=== PATIENT | male | born 1995 | race Caucasian/White ===

== ENCOUNTER → 2018-09-11 13:30 | Outpatient (CLI) | payer BC, SELFPAY ==
--- NOTE | 2018-09-11 13:36 | XR_ITS ---
XR shoulder RT min 2V HISTORY: Right shoulder pain, follow-up before meals separation ITS.REASON: RT shoulder AC joint seperation ORDERING PHYSICIAN: Drake Vega MD PATIENT AGE: 22 years Comparison: 06/25/2018 FINDINGS: The glenohumeral joint has an unremarkable appearance. Acromioclavicular separation once again noted. The superior displacement of the distal clavicle is slightly less compared to the previous exam. IMPRESSION: Acromioclavicular separation slightly improved
== END ==
PROVIDERS: Visit Provider Orthopaedic Surgery
DX: S43.101A Unspecified dislocation of right acromioclavicular joint, initial encounter (principal)
CPT/HCPCS: 73030

== ENCOUNTER → 2018-12-11 12:39 | Outpatient (CLI) | payer SELFPAY ==
--- NOTE | 2018-12-11 12:44 | XR_ITS ---
XR hand RT min 3V HISTORY: Follow-up fracture/ORIF fifth metacarpal ITS.REASON: sp orif rt 5th MC dos 03/07/17 ORDERING PHYSICIAN: Drake Vega MD PATIENT AGE: 23 years COMPARISON: 04/18/2017 FINDINGS: There is a bone plate along the proximal aspect of the fifth metacarpal. There is good alignment. Previously noted fracture is no longer apparent. There is nonspecific cystic change of the distal aspect of the fifth metacarpal. IMPRESSION: Prior ORIF fifth metacarpal with healed fracture
== END ==
PROVIDERS: Visit Provider Orthopaedic Surgery
DX: Z48.89 Encounter for other specified surgical aftercare (principal)
CPT/HCPCS: 73130

== ENCOUNTER 2019-03-15 13:43 | Inpatient (IN) ==
--- NOTE | 2019-03-15 14:26 | Emergency Department Note ---
ED Disposition Clinical Impression: Acute perforated appendicitis Disposition: Still a Patient Condition on Discharge: Fair Instructions: DI for Acute Abdomen Referrals: Provider,MD Corie [Primary Care Provider] - Alfonso Rutherford MD [Staff Physician] - - Critical Care Critical Care Time: No Attestation: On 03/15/19, the high probability of a clinically significant, sudden or life threatening deterioration of the following system(s) required my full and direct attention, intervention and personal management. The time I documented below is in addition to time spent performing reported procedures but includes the following listed in this critical care notation. Medical Decision Making - Diogo Inquiry Pt receiving controlled substance: No Diogo was queried for this patient: No Vital Signs: 03/15/19 14:02 03/15/19 15:43 03/15/19 16:30 Temperature 100.5 F H 101.6 F H Temperature Source Oral Oral Pulse Rate Pulse Rate [Left Radial] 98 H 89 91 H Respiratory Rate 16 Blood Pressure Blood Pressure [Right Radial Artery] 134/71 117/57 L 137/64 Blood Pressure Mean [Right Radial Artery] 92 77 88 Blood Pressure Source Blood Pressure Source [Right Radial Artery] Automatic Cuff Automatic Cuff Blood Pressure Position Blood Pressure Position [Right Radial Artery] Sitting Sitting 02 Sat by Pulse Oximetry 98 96 Oxygen Delivery Method Room Air 03/15/19 16:42 03/15/19 17:59 03/15/19 18:40 Temperature 101.8 F H 100 F H Temperature Source Oral Oral Pulse Rate 89 Pulse Rate [Left Radial] 77 Respiratory Rate 18 Blood Pressure 140/71 Blood Pressure [Right Radial Artery] 130/57 L Blood Pressure Mean [Right Radial Artery] 81 Blood Pressure Source Automatic Cuff Blood Pressure Source [Right Radial Artery] Automatic Cuff Blood Pressure Position Sitting Blood Pressure Position [Right Radial Artery] Supine 02 Sat by Pulse Oximetry 98 Oxygen Delivery Method Room Air Room Air - Lab Data Lab Results 03/15/19 14:05: WBC 12.2 H, RBC 5.34, Hgb 14.3, Hct 43.3, MCV 81.1, MCH 26.8 L, MCHC 33.0, RDW 12.5, Plt Count 240, MPV 7.7, Neut % (Auto) 87.8 H, Lymph % (Auto) 7.4 L, [place] % (Auto) 3.9, Eos % (Auto) 0.7, Baso % (Auto) 0.3, Neut # (Auto) 10.7 H, Lymph # (Auto) 0.9, [place] # (Auto) 0.5, Eos # (Auto) 0.1, Baso # (Auto) 0.0, Total Counted 100, Neutrophils % (Manual) 80 H, Lymphocytes % (Manual) 12, Monocytes % (Manual) 6, Eosinophils % (Manual) 2, Platelet Estimate Normal, Hypochromasia 1+ 03/15/19 14:05: Sodium 140, Potassium 3.5, Chloride 100, Carbon Dioxide 31, Anion Gap 12.5, BUN 13, Creatinine 1.04, Estimated Creat Clear 128, Estimated GF R 89, Est GFR ( Amer) 107, Glucose 107 H, Calcium 9.1, Total Bilirubin 1.7 H, AST 13 L, ALT 25, Alkaline Phosphatase 73, Total Protein 7.6, Albumin 4.2, Globulin 3.4 H, Albumin/Globulin Ratio 1.2 03/15/19 14:05: Lipase 83 03/15/19 14:06: Urine Color Yellow, Urine Appearance Clear, Urine pH 8.5, Ur Specific [place] 1.010, Urine Protein 1+, Urine Glucose (UA) Negative, Urine Ketones Negative, Urine Blood Negative, Urine Nitrate Negative, Urine Bilirubin Negative, Urine Urobilinogen 0.2, Ur Leukocyte Esterase Negative, Urine WBC Occasional, Amorphous Sediment 1+, Urine Bacteria Trace Result diagrams: 03/15/19 14:05 03/15/19 14:05 Orders (Tests/Meds): ED MEDICATIONS Discontinued Medications Generic Name Dose Route Start Last Admin Trade Name Val[place] PRN Reason Stop Dose Admin Acetaminophen 1,000 mg 03/15/19 15:47 03/15/19 15:47 Tylenol 500mg Tablet PO 03/15/19 15:48 1,000 mg ONCE ONE Administration Diatrizoate Meglum/Diatrizoate Sod 30 ml 03/15/19 14:40 03/15/19 14:35 Gastrografin 66%-10% 30ml PO 03/15/19 14:41 30 ml ONCE ONE Administration Famotidine 20 mg 03/15/19 14:22 03/15/19 14:50 Pepcid 20mg/2ml Vial IV 03/15/19 14:23 20 mg ONCE ONE Administration Hydromorphone HCl 1 mg 03/15/19 18:01 03/15/19 18:07 Dilaudid 2mg/Ml Syringe IV 03/15/19 18:02 Not Given ONCE ONE Hydromorphone HCl 1 mg 03/15/19 17:25 03/15/19 18:06 Dilaudid 2mg/Ml Syringe IV 03/15/19 17:26 Not Given ONCE ONE Lactated Ringer's 1,000 mls @ 999 mls/hr 03/15/19 14:45 03/15/19 14:50 Lactated Ringer's 1000 Ml Bag IV 03/15/19 15:45 999 mls/hr .Q1H1M BELÉN Administration Piperacillin Sod/Tazobactam 50 mls @ 100 mls/hr 03/15/19 17:15 03/15/19 17:19 Sod 3.375 gm/ Sodium Chloride IV 03/29/19 17:14 100 mls/hr Q6H BELÉN Administration Protocol Lactated Ringer's 1,000 mls @ 125 mls/hr 03/15/19 18:00 03/15/19 18:04 Lactated Ringer's 1000 Ml Bag IV 04/14/19 17:59 125 mls/hr .Q8H BELÉN Administration Ampicillin Sodium/Sulbactam 100 mls @ 200 mls/hr 03/15/19 18:42 Sodium 3 gm/ Sodium Chloride IV 03/15/19 18:43 ONCE ONE Protocol Ioversol 75 ml 03/15/19 16:29 03/15/19 16:30 Rad-Optiray 350 100ml Vial IV 03/15/19 16:30 75 ml ONCE ONE Administration Protocol Ketorolac Tromethamine 30 mg 03/15/19 14:07 03/15/19 14:09 Toradol 30mg/Ml Vial IV 03/15/19 14:08 30 mg ONCE ONE Administration Morphine Sulfate 1 mg 03/15/19 18:07 03/15/19 18:10 Morphine 2mg/Ml Syringe IV 03/15/19 18:08 1 mg ONCE ONE Administration Morphine Sulfate 1 mg 03/15/19 18:27 03/15/19 18:35 Morphine 2mg/Ml Syringe IV 03/15/19 18:28 1 mg ONCE ONE Administration Ondansetron HCl 4 mg 03/15/19 14:07 03/15/19 14:09 Zofran 4mg/2ml Vial IV 03/15/19 14:08 4 mg ONCE ONE Administration Ondansetron HCl 4 mg 03/15/19 18:27 03/15/19 18:35 Zofran 4mg/2ml Vial IV 03/15/19 18:28 4 mg ONCE ONE Administration Sodium Chloride 10 ml 03/15/19 14:22 03/15/19 14:50 Saline Flush 10ml Syringe IV 04/14/19 14:21 10 ml NEEDED PRN Administration Maintain IV Site Sodium Chloride 8 ml 03/15/19 14:22 03/15/19 14:50 Saline Flush 10ml Syringe IV 03/15/19 14:23 8 ml ONCE ONE Administration Sodium Chloride 10 ml 03/15/19 16:29 03/15/19 16:30 Rad-Saline Flush 10ml Syringe IV 03/15/19 16:30 10 ml ONCE ONE Administration ORDERS Category Date Time Status CT abdomen pelvis w con Stat Cat Scan 03/15/19 14:48 Taken - CT Data CT Scan: Abdomen, Pelvis Time Received: 17:[address] Reviewed: Yes: I have viewed the radiologist's interpretation Preliminary Findings: Abnormal Findings Narrative: Acute perforated appendix Medical Decision Narrative: The patient temperature started climbing up to 101.8 he was given Tylenol [address] scan was positive for perforated appendix. 1700 I spoke with the patient and his family and they were agreeable to undergo the surgery and [facility]. [address] Rutherford who will be come evaluate the patient and called the surgery team. We discussed antibiotic therapy who recommended Zosyn 3.375. She remained hemodynamically stable until arrival of the OR crew. Abdominal Pain HPI - General Chief Complaint: Abdominal Pain Stated Complaint: Stomach pains with radiating pain through testical Time Seen by Provider: 03/15/19 14:10 Mode of Arrival: Ambulatory Limitations: No Limitations Description of Symptoms (Recalled from ER Triage Doc. by RN): to ed per pvt car with c/o lower abd pain starting yesterday worse over last 2 hours. states pain radiates down into testicles, +nausea and vomiting. denies diarreha. cpta tylenol at 7am - History of Present Illness HPI narrative: 23 years old white male with a past medical history of tonsillectomy. Today at 8 PM he developed lower abdominal pain sharp in character rated 6/10 progressively worsened to 8 by midnight. This morning he attempted to eat with immediate vomiting and worsening of his lower abdominal pain to 10/10. He presented to the ED with a low-grade temperature and ongoing abdominal pain. He denies having hematemesis coffee-ground emesis melanotic stool or bleeding per rectum. He denies having hematuria dysuria or frequency. He denies having flank pain. He denies having chest pain shortness of breath or palpitations. He did not have a bowel movement since yesterday but urinated twice this morning. MD complaint: abdominal pain Consistency: constant Location: periumbilical Severity: severe Severity scale (1-10): 10 Quality: sharp Relieving factors: eating Exacerbating factors: nothing Associated symptoms: nausea, vomiting - Related Data Home Medications Medication Instructions Recorded Confirmed No Known Home Medications 12/11/18 03/15/19 Allergies Allergy/AdvReac Type Severity Reaction Status Date / Time No Known Allergies Allergy Verified 12/11/18 14:[address] [facility] History - Hepatitis A Screen Drug use history?: No High risk sexual behaviors?: No History of sexually transmitted infection?: No Currently employed?: No Childcare worker?: No Do you have indoor plumbing?: Yes Do you have electricity?: Yes Attestation statement:: This patient has been screened for Hepatitis A risk factors. I have reviewed the patient's past medical history: Yes Comment: none Laterality Cases: Bilateral: Tonsillectomy Other Surgeries: Yes: Other Comment: hand, tonsils - Social History Smoking Status: Former smoker Tobacco Type: smokeless tobacco Alcohol Intake: never Substance Use Type: denies use Occupational Status: employed Housing: house Household Members: significant other Family Hx:: No significant family history ROS Obtained: Yes All systems reviewed & no additional complaints Physical Exam - General General appearance: alert, in no apparent distress - Head Head exam: atraumatic, normocephalic, normal inspection - Eye Eye exam: Present: normal appearance, PERRL, EOMI - ENT ENT exam: Present: normal exam, normal oropharynx, mucous membranes moist, TM's normal bilaterally, normal external ear exam - Neck Neck exam: Present: normal inspection, full ROM, trachea midline. Absent: tenderness, meningismus, lymphadenopathy - Chest Chest inspection: Present: normal inspection, symmetric chest wall rise. Absent: tenderness - Respiratory Respiratory exam: Present: normal lung sounds bilaterally. Absent: respiratory distress - Cardiovascular Cardiovascular exam: Present: regular rate, normal rhythm. Absent: JVD - Abdominal Exam Abdominal exam: Present: soft, tenderness, rebound, rigidity, normal bowel sounds, tenderness at [place], other (The abdomen is flat with right lower quadrant tenderness voluntary guarding and impressive rebound. ). Absent: distention, guarding - exam: Present: normal inspection, normal testicular lie, circumcised. Absent: testicular tenderness, urethral discharge, scrotal swelling - Extremities Exam Extremities exam: Present: normal inspection, full ROM, normal capillary refill. Absent: tenderness, calf tenderness - Back Exam Back exam: Present: normal inspection. Absent: tenderness, CVA tenderness (R), CVA tenderness (L) - Neurological Exam Neurological exam: Present: alert, oriented X3, CN II-XII intact, motor sensory deficit, reflexes normal - Psychiatric Psychiatric exam: Present: normal affect, normal mood - Skin Skin exam: Present: warm, dry, intact, normal color - Lymphatic Lymphatic Findings: no adenopathy
[2019-03-15 14:34] LABS: Appearance,Urine CLEAR (Clear); Bilirubin,Urine Negative (Negative); Blood, Urine Negative (Negative); Color,Urine YELLOW (Yellow); Glucose,Urine (UA) Negative (Negative); Ketones,Urine Negative (Negative); Leukocyte Esterase,Urine Negative (Negative); Microscopic, Urine URINE MICROSCOPIC (MICROSCOPIC); PH,Urine 8.5 (5.0-8.5); Protein,Urine 1+ (Negative); Urobilinogen,Urine 0.2 EU/dl (0.2)
[2019-03-15 14:41] LABS: Basophils % 0.3 % (0.1-2.0); Eosinophils # 0.1 K/mm3 (0.0-0.4); Eosinophils % 0.7 % (0.1-12.0); Hematocrit 43.3 % (42.0-52.0); Hemoglobin 14.3 g/dL (14.1-18.0); Lymphocytes # 0.9 K/mm3 (0.7-4.5); Lymphocytes % 7.4 % (10-50); Mean Corpuscular Volume 81.1 fl (80-94); Mean Platelet Volume 7.7 fl (7.4-10.4); Monocytes # 0.5 K/mm3 (0.1-1.0); Monocytes % 3.9 % (1.7-9.3); Neutrophils # 10.7 K/mm3 (1.8-7.8); Neutrophils % 87.8 % (37.0-80.0); Platelet Count 240 K/mm3 (142-424); Red Blood Count 5.34 M/mm3 (4.60-6.20); Red Cell Distribution Width 12.5 % (11.5-17.5); White Blood Count 12.2 K/mm3 (4.8-10.8)
[2019-03-15 14:41] LABS: Amorphous Sediment,Urine 1+ /lpf; Bacteria,Urine Trace /lpf; WBC,Urine Occasional #/hpf (0-3)
[2019-03-15 14:46] LABS: Albumin Level 4.2 gm/dL (3.4-5.0); Albumin/Globulin Ratio 1.2 (1.1-1.8); Anion Gap 12.5 mEq/L (5-15); Bilirubin,Total 1.7 mg/dL (0.2-1.0); Calcium 9.1 mg/dL (8.5-10.1); Globulin 3.4 gm/dl (1.3-3.2); Total Protein,Serum 7.6 gm/dL (6.4-8.2)
[2019-03-15 15:10] LABS: Eosinophils % 2 % (0-3); Hypochromasia 1+; Lymphocytes % 12 % (10-50); Monocytes % 6 % (2-9); Neutrophils % 80 % (42-76); Total Cells Counted 100
--- NOTE | 2019-03-15 18:25 | History & Physical Report ---
HPI HPI: ABDOMINAL PAIN Patient is a 23-year-old otherwise healthy white male who states that on 03/13/2019 he had eaten some salad and developed a minor "stomachache". Yesterday approximately 11 AM however he had developed recurrent acute pain in the lower abdomen. It persisted throughout the day and today became much more severe. He presented to the emergency department where he was seen and evaluated. He was found to have a mild leukocytosis and he had CT scan performed which by virtual radiology report reveals findings consistent with possible perforated appendicitis. Patient states that since he has presented to the emergency department he has had pain more pronounced in the right abdomen in the right upper back area. [facility] History Medical History: Denies:: Seizures *Have you ever received a pneumonia vaccine?: No *Have you received a flu vaccine this season?: Yes Laterality Cases: Bilateral: Tonsillectomy Other Surgeries: Yes: Other - *Social History Smoking Status: Former smoker Tobacco Type: smokeless tobacco Alcohol Intake: never Substance Use Type: denies use *Occupational Status:: employed Housing: house Household Members: significant other *Travel in the last 8 weeks: None Family Hx:: No significant family history Review of Systems - Review of Systems Review of systems:: pertinent systems reviewed and negative unless documented below Meds Home Medications Medication Instructions Recorded Confirmed Type No Known Home Medications 12/11/18 03/15/19 History Allergies Allergy/AdvReac Type Severity Reaction Status Date / Time No Known Allergies Allergy Verified 12/11/18 14:04 Exam Vital signs and Labs for Last 24 Hours: Temp Pulse Resp BP Pulse Ox 101.8 F H 77 16 130/57 L 98 03/15/19 16:42 03/15/19 17:59 03/15/19 14:02 03/15/19 17:59 03/15/19 17:59 Laboratory Results - last 24 hr 03/15/19 14:05: WBC 12.2 H, RBC 5.34, Hgb 14.3, Hct 43.3, MCV 81.1, MCH 26.8 L, MCHC 33.0, RDW 12.5, Plt Count 240, MPV 7.7, Neut % (Auto) 87.8 H, Lymph % (Auto) 7.4 L, [place] % (Auto) 3.9, Eos % (Auto) 0.7, Baso % (Auto) 0.3, Neut # (Auto) 10.7 H, Lymph # (Auto) 0.9, [place] # (Auto) 0.5, Eos # (Auto) 0.1, Baso # (Auto) 0.0, Total Counted 100, Neutrophils % (Manual) 80 H, Lymphocytes % (Manual) 12, Monocytes % (Manual) 6, Eosinophils % (Manual) 2, Platelet Estimate Normal, Hypochromasia 1+ 03/15/19 14:05: Sodium 140, Potassium 3.5, Chloride 100, Carbon Dioxide 31, Anion Gap 12.5, BUN 13, Creatinine 1.04, Estimated Creat Clear 128, Estimated GFR 89, Est GFR ( Amer) 107, Glucose 107 H, Calcium 9.1, Total Bilirubin 1.7 H, AST 13 L, ALT 25, Alkaline Phosphatase 73, Total Protein 7.6, Albumin 4.2, Globulin 3.4 H, Albumin/Globulin Ratio 1.2 03/15/19 14:05: Lipase 83 03/15/19 14:06: Urine Color Yellow, Urine Appearance Clear, Urine pH 8.5, Ur Specific [place] 1.010, Urine Protein 1+, Urine Glucose (UA) Negative, Urine Ketones Negative, Urine Blood Negative, Urine Nitrate Negative, Urine Bilirubin Negative, Urine Urobilinogen 0.2, Ur Leukocyte Esterase Negative, Urine WBC Occasional, Amorphous Sediment 1+, Urine Bacteria Trace I & O for Last 24 hours: Intake & Output 03/13/19 03/14/19 03/15/19 03/16/19 11:59 11:59 11:59 11:59 Weight 180 lb - *Routine HEENT Exam Head: Present: normocephalic Eye: Present: EOMI, PERRL ENT: Present: mucous membranes moist - *Routine Neck Exam Present: supple. Absent: lymphadenopathy - *Routine Respiratory Exam Present: CTA bilaterally - *Routine Cardiovascular Exam Present: RRR - *Routine Abdominal Exam Present: soft, normoactive bowel sounds, tenderness - *Routine Extremities Exam Absent: cyanosis, clubbing, edema - *Routine Skin Exam Present: warm. Absent: rash - *Routine Neurological Exam Present: alert, oriented X3 - Detailed Eye Exam Eyelids: Left normal inspection Results - Results Lab Results Last 24 Hours:: Laboratory Results - last 24 hr 03/15/19 14:05: WBC 12.2 H, RBC 5.34, Hgb 14.3, Hct 43.3, MCV 81.1, MCH 26.8 L, MCHC 33.0, RDW 12.5, Plt Count 240, MPV 7.7, Neut % (Auto) 87.8 H, Lymph % (Auto) 7.4 L, [place] % (Auto) 3.9, Eos % (Auto) 0.7, Baso % (Auto) 0.3, Neut # (Auto) 10.7 H, Lymph # (Auto) 0.9, [place] # (Auto) 0.5, Eos # (Auto) 0.1, Baso # (Auto) 0.0, Total Counted 100, Neutrophils % (Manual) 80 H, Lymphocytes % (Manual) 12, Monocytes % (Manual) 6, Eosinophils % (Manual) 2, Platelet Estimate Normal, Hypochromasia 1+ 03/15/19 14:05: Sodium 140, Potassium 3.5, Chloride 100, Carbon Dioxide 31, Anion Gap 12.5, BUN 13, Creatinine 1.04, Estimated Creat Clear 128, Estimated GFR 89, Est GFR ( Amer) 107, Glucose 107 H, Calcium 9.1, Total Bilirubin 1.7 H, AST 13 L, ALT 25, Alkaline Phosphatase 73, Total Protein 7.6, Albumin 4.2, Globulin 3.4 H, Albumin/Globulin Ratio 1.2 03/15/19 14:05: Lipase 83 03/15/19 14:06: Urine Color Yellow, Urine Appearance Clear, Urine pH 8.5, Ur Specific [place] 1.010, Urine Protein 1+, Urine Glucose (UA) Negative, Urine Ketones Negative, Urine Blood Negative, Urine Nitrate Negative, Urine Bilirubin Negative, Urine Urobilinogen 0.2, Ur Leukocyte Esterase Negative, Urine WBC Occasional, Amorphous Sediment 1+, Urine Bacteria Trace Assessment and Plan - Assessment and plan all Dx Assessment and Plan for all problems:: Plan for emergent appendectomy. Attempt at laparoscopic with possible open procedure. The nature and details of the proposed procedure along with the need for open procedure and expected postoperative outcome were explained to the patient. He understands and agrees to proceed.
--- NOTE | 2019-03-15 20:28 | Operative Note ---
Date of procedure: 03/15/19 Pre-op Diagnosis:: Acute appendicitis Post-op Diagnosis:: Acute appendicitis with perforation and established feculent peritonitis Procedure performed:: Laparoscopic appendectomy Surgeon:: Alfonso Rutherford MD STRUCTURAL DRAFTSMAN:: Narinder Mendez Anesthesia: ARLENE Estimated blood loss (mL): 20 Clinical Note:: Patient is a 23-year-old white male. He states that he had minor stomach discomfort 2 days ago on 03/13/2019 after he had eaten a salad. However this was self-limited and seemed to resolve. However yesterday on 03/14/2019 approx imately 11 AM he had lower abdominal pain. This persisted and became very severe today. He describes the pain as a 10 out of 10 in the worst pain he had ever experienced. He presented to the emergency department where he was seen and evaluated. He was found to be febrile with a leukocytosis. He had a CT scan performed which revealed findings consistent with probable complicated appendicitis. Surgical consultation was obtained and plan was made for emergent appendectomy. Operative findings:: He had findings of establish peritonitis with diffuse peritoneal irritation in the pelvis with induration, erythema and edema of the small bowel with resultant probable ileus. Appendix was markedly inflamed and enlarged with some distal necrosis and perforation. There was feculent fluid in the pelvis. Operative note:: Consent was obtained and patient was taken to the operating room. He was positioned in a supine position. General anesthesia was induced via endotracheal tube. Grady catheter was placed. Abdomen was prepped and draped in the standard surgical fashion. Subumbilical skin incision was made and while performing abdominal wall lift Veress needle was inserted. CO2 pneumoperitoneum was achieved to 15 mmHg. 12 mm optical trocar was inserted at the umbilicus. Intraperitoneal contents were visualized. There is marketed induration, erythema, and edema of the small bowel and peritoneal lining consistent with establish peritonitis. 5 mm trocar was inserted in the left lower quadrant. Ultimately additional 5 mm trocar was inserted in the right upper abdomen and due to the inflammatory response and initial difficulty delivering the appendix from the pelvis 5 mm trocar was inserted in the low midline. There was e ssentially inflammatory phlegmon in the pelvis. Acute inflammatory adhesions were freed up. Ultimately the appendix was identified and was necrotic and gangrenous at its tip with perforation. There was feculent liquid in the pelvis and this was suctioned free. Appendix was grasped with an endoscopic [place]. The appendix was dissected down to its base which the base of the appendix was partially retrocecal using Sukhi ultrasonic harmonic lina with care taken to coagulate the appendiceal artery in the process. The appendix at its base was relatively uninflamed. The appendix was divided at its base with an endoscopic DIANNA linear cutting stapling device. The appendix was placed within an Endo Catch retrieval device and removed from the peritoneal cavity via the umbilical trocar site which required some minor stretching of the fascial incision for delivery. The pelvis and periappendiceal region were irrigated with 4 to 5 L of warm saline and aspirated until clear. Due to the phlegmon formation and established peritonitis a 10 mm FLAKITA drain was placed along the right paracolic gutter and into the pelvis through a separate incision in the right lower abdomen. It was secured to the skin with a 2-0 nylon horizontal mattress suture. There was good hemostasis. Fascia at the umbilicus was closed with several interrupted 0 Vicryl sutures. Local anesthetic was infiltrated into the trocar sites. Skin incisions were closed with 4-0 Monocryl in subcuticular fashion. Steri-Strips and dressings were applied. Condition: stable Disposition: PACU Specimens:: Appendix Complications:: None immediately apparent
--- NOTE | 2019-03-15 20:41 | Progress Note ---
[facility] Anesthesia Checklist - Patient Identification Patient Identification: Arm Band, Verbal (Name & ) - Structural Data Admitted From: Emergency Dept Planned Operative Procedure/s: lap appy Consent for Planned Operative Procedure(s) Verified: Yes Verified Documents: History and Physical - NPO Status Verified Time NPO: 12:00 - Additional verifications Patient : No Anesthesia Reactions: No Hx Blood Transfusions: No Blood Transfusion Reaction: No Cephalosporin Allergy: No Previous Colonoscopy: No - Cardiovascular Assessment Heart Sounds: S1 & S2 Pulse Strength: Baseline Pulse Rhythm: Regular Peripheral Edema: No - Airway Assessment C-Spine Mobility Assessed: Yes TMJ Mobility Assessed: Yes Dentition: Good Dentition - Neurological Assessment Level of Consciousness: Awake, Alert, Appropriate Hx Seizures: No Numbness or tingling in extremities: No - Anesthesia Plan Anesthesia Risk discussed: Yes Anesthesia Plan: Verified ASA Class: I Anesthesia Type: General [facility] History I have reviewed the patient's past medical history: Yes Medical History: Denies:: Seizures *Have you ever received a pneumonia vaccine?: No *Have you received a flu vaccine this season?: Yes Laterality Cases: Bilateral: Tonsillectomy Other Surgeries: Yes: Other - *Social History Smoking Status: Former smoker Tobacco Type: smokeless tobacco Alcohol Intake: never Substance Use Type: denies use *Occupational Status:: employed Housing: house Household Members: significant other *Travel in the last 8 weeks: None Family Hx:: No significant family history
--- NOTE | 2019-03-15 20:42 | Progress Note ---
[facility] Anesthesia Record Part I Intake, IV Amount: 1,600 Estimated blood loss (mL): 20 Urine output (mL): 200 Blood Products used (#): none Blood Pressure: 136/69 SaO2: 98 Pulse Rate: 97 Respiratory Rate: 20 Temperature: 98.8 F Patient is:: Awake, Stable Stable to PACU at:: 20:37
--- NOTE | 2019-03-15 20:43 | Progress Note ---
[facility] Anesthesia Record Part II Discharge Time: 21:07 Destination: Medical Surgical Department PACU nurse assessment reviewed?: Yes Patient Condition:: Good Anesthesia Complications:: None Swallowing reflex intact?: Yes Cyanosis?: No
[2019-03-16 06:30] LABS: Basophils % 0.2 % (0.1-2.0); Eosinophils % 0.1 % (0.1-12.0); Hematocrit 35.9 % (42.0-52.0); Lymphocytes # 0.9 K/mm3 (0.7-4.5); Lymphocytes % 5.5 % (10-50); Mean Corpuscular HGB Conc 31.9 g/dL (31.8-35.4); Mean Corpuscular Volume 82.6 fl (80-94); Mean Platelet Volume 8.1 fl (7.4-10.4); Monocytes # 0.7 K/mm3 (0.1-1.0); Monocytes % 4.4 % (1.7-9.3); Neutrophils # 14.2 K/mm3 (1.8-7.8); Neutrophils % 89.8 % (37.0-80.0); Platelet Count 192 K/mm3 (142-424); Red Blood Count 4.34 M/mm3 (4.60-6.20); Red Cell Distribution Width 12.6 % (11.5-17.5); White Blood Count 15.8 K/mm3 (4.8-10.8)
[2019-03-16 06:32] LABS: Hemoglobin 11.5 g/dL (14.1-18.0)
[2019-03-16 08:46] LABS: Hypochromasia 1+; Lymphocytes % 6 % (10-50); Monocytes % 5 % (2-9); Neutrophils % 87 % (42-76); Total Cells Counted 100
--- NOTE | 2019-03-16 08:47 | Progress Note ---
Subjective Narrative: Patient states that he feels "decent". Tolerating clear liquids. No nausea. Complains of being "sore" around drain site. No fevers since surgery. Exam Vital signs and Labs for Last 24 Hours: Temp Pulse Resp BP Pulse Ox 97.9 F 57 L 16 108/65 L 99 03/16/19 08:00 03/16/19 08:00 03/16/19 08:00 03/16/19 08:00 03/16/19 08:00 Laboratory Results - last 24 hr 03/15/19 14:05: WBC 12.2 H, RBC 5.34, Hgb 14.3, Hct 43.3, MCV 81.1, MCH 26.8 L, MCHC 33.0, RDW 12.5, Plt Count 240, MPV 7.7, Neut % (Auto) 87.8 H, Lymph % (Auto) 7.4 L, [place] % (Auto) 3.9, Eos % (Auto) 0.7, Baso % (Auto) 0.3, Neut # (Auto) 10.7 H, Lymph # (Auto) 0.9, [place] # (Auto) 0.5, Eos # (Auto) 0.1, Baso # (Auto) 0.0, Total Counted 100, Neutrophils % (Manual) 80 H, Lymphocytes % (Manual) 12, Monocytes % (Manual) 6, Eosinophils % (Manual) 2, Platelet Estimate Normal, Hypochromasia 1+ 03/15/19 14:05: Sodium 140, Potassium 3.5, Chloride 100, Carbon Dioxide 31, Anion Gap 12.5, BUN 13, Creatinine 1.04, Estimated Creat Clear 128, Estimated GFR 89, Est GFR ( Amer) 107, Glucose 107 H, Calcium 9.1, Total Bilirubin 1.7 H, AST 13 L, ALT 25, Alkaline Phosphatase 73, Total Protein 7.6, Albumin 4.2, Globulin 3.4 H, Albumin/Globulin Ratio 1.2 03/15/19 14:05: Lipase 83 03/15/19 14:06: Urine Color Yellow, Urine Appearance Clear, Urine pH 8.5, Ur Specific [place] 1.010, Urine Protein 1+, Urine Glucose (UA) Negative, Urine Ketones Negative, Urine Blood Negative, Urine Nitrate Negative, Urine Bilirubin Negative, Urine Urobilinogen 0.2, Ur Leukocyte Esterase Negative, Urine WBC Occasional, Amorphous Sediment 1+, Urine Bacteria Trace 03/15/19 21:45: Urine Color Yellow, Urine Appearance Clear, Urine pH 8.5, Ur Specific [place] 1.010, Urine Protein 1+, Urine Glucose (UA) Negative, Urine Ketones Trace, Urine Blood Negative, Urine Nitrate Negative, Urine Bilirubin Negative, Urine Urobilinogen 1.0, Ur Leukocyte Esterase Negative, Urine WBC 3-5 03/16/19 05:55: WBC 15.8 H D, RBC 4.34 L, Hgb 11.5 L D, Hct 35.9 L, MCV 82.6, MCH 26.4 L, MCHC 31.9, RDW 12.6, Plt Count 192, MPV 8.1, Neut % (Auto) 89.8 H, Lymph % (Auto) 5.5 L, [place] % (Auto) 4.4, Eos % (Auto) 0.1, Baso % (Auto) 0.2, Neut # (Auto) 14.2 H, Lymph # (Auto) 0.9, [place] # (Auto) 0.7, Eos # (Auto) 0.0, Baso # (Auto) 0.0 I & O for Last 24 hours: Intake & Output 03/13/19 03/14/19 03/15/19 03/16/19 11:59 11:59 11:59 11:59 Intake Total 2863 / 2863 Output Total 30 / 30 Balance 2833 / 2833 Weight 200 lb 2 oz Narrative: WBC 15K today. - *Routine Abdominal Exam Present: soft, tenderness Comments: FLAKITA drain with serous drainage. Progress Note: A&P Assessment and Plan for All Diagnoses:: Continue IV antibiotics for established feculent peritonitis. Limit to clears due to ileus and degree of peritonitis. Monitor character of FLAKITA output.
--- NOTE | 2019-03-16 10:58 | Pharmacy Consult Notes ---
[facility] Pharmacy VTE Monitoring - Patient Demographics Admission date: 03/16/19 Report Date: 03/16/19 Time: 10:58 Allergies/Adverse Reactions: Patient Allergies No Known Allergies Allergy (Verified 12/11/18 14:04) Height: 1.85 m Weight: 90.775 kg Patient Problems: Current Active Problems (Updated 03/15/19 @ 17:09 by Nataliia Trinh MD) Acute perforated appendicitis (Acute) - VTE Risk Labs: VTE Related Lab Results Hgb 11.5 g/dL (14.1-18.0) L D 03/16/19 05:55 Hct 35.9 % (42.0-52.0) L 03/16/19 05:55 Plt Count 192 K/mm3 (142-424) 03/16/19 05:55 BUN 13 mg/dL (7-18) 03/15/19 14:05 Creatinine 1.04 mg/dL (0.70-1.30) 03/15/19 14:05 Estimated Creat Clear 128 mL/min (50-200) 03/15/19 14:05 Was VTE Risk Assessment Performed: Yes VTE Score: 1 - Prophylaxis Types of VTE Prophylaxis: IPCS Thigh High (ICDS ORDERED)
--- NOTE | 2019-03-17 07:35 | Progress Note ---
Subjective Narrative: Patient states that he feels "decent". Complained of heartburn after clears. Had episode of vomiting with clears. Concerned about swelling at umbilical incision. Complains of soreness focally at drain site. Exam Vital signs and Labs for Last 24 Hours: Temp Pulse Resp BP Pulse Ox 98.7 F 80 18 115/60 98 03/17/19 04:00 03/17/19 04:00 03/17/19 04:00 03/17/19 04:00 03/17/19 04:00 Laboratory Results - last 24 hr 03/16/19 05:55: Total Counted 100, Neutrophils % (Manual) 87 H, Band Neutrophils % 2.0, Lymphocytes % (Manual) 6 L, Monocytes % (Manual) 5, Platelet Estimate Normal, RBC Morphology Not Reportable, Hypochromasia 1+ I & O for Last 24 hours: Intake & Output 03/14/19 03/15/19 03/16/19 03/17/19 11:59 11:59 11:59 11:59 Intake Total 2863 / 2863 3555 / 3555 Output Total 930 / 930 205 / 205 Balance 193 / 193 3350 / 3350 Weight 200 lb 2 oz 206 lb 2 oz - *Routine Abdominal Exam Present: soft, tenderness Comments: Slightly distended. FLAKITA drain serous, site without hematoma. Progress Note: A&P Assessment and Plan for All Diagnoses:: Continue to limit to clears due to ileus, vomiting, heartburn. Monitor FLAKITA output. Continue IV antibiotics due to established feculent peritonitis.
[2019-03-17 08:56] LABS: Basophils % 0.3 % (0.1-2.0); Eosinophils # 0.2 K/mm3 (0.0-0.4); Eosinophils % 1.6 % (0.1-12.0); Hematocrit 37.2 % (42.0-52.0); Hemoglobin 12.2 g/dL (14.1-18.0); Lymphocytes # 1.1 K/mm3 (0.7-4.5); Lymphocytes % 8.9 % (10-50); Mean Corpuscular HGB Conc 32.9 g/dL (31.8-35.4); Mean Corpuscular Volume 82.9 fl (80-94); Mean Platelet Volume 8.5 fl (7.4-10.4); Monocytes # 0.6 K/mm3 (0.1-1.0); Monocytes % 4.9 % (1.7-9.3); Neutrophils # 10.9 K/mm3 (1.8-7.8); Neutrophils % 84.4 % (37.0-80.0); Platelet Count 209 K/mm3 (142-424); Red Blood Count 4.49 M/mm3 (4.60-6.20); Red Cell Distribution Width 12.7 % (11.5-17.5); White Blood Count 12.9 K/mm3 (4.8-10.8)
--- NOTE | 2019-03-18 07:08 | Progress Note ---
Subjective Narrative: Patient states that he feels "better". Has not had any nausea since yesterday. Taking clear liquids. A couple of liquid stools. Exam Vital signs and Labs for Last 24 Hours: Temp Pulse Resp BP Pulse Ox 98.4 F 59 L 16 105/50 L 99 03/18/19 04:00 03/18/19 04:00 03/18/19 04:00 03/18/19 04:00 03/18/19 04:00 Laboratory Results - last 24 hr 03/17/19 08:41: WBC 12.9 H, RBC 4.49 L, Hgb 12.2 L, Hct 37.2 L, MCV 82.9, MCH 27.2, MCHC 32.9, RDW 12.7, Plt Count 209, MPV 8.5, Neut % (Auto) 84.4 H, Lymph % (Auto) 8.9 L, [place] % (Auto) 4.9, Eos % (Auto) 1.6, Baso % (Auto) 0.3, Neut # (Auto) 10.9 H, Lymph # (Auto) 1.1, [place] # (Auto) 0.6, Eos # (Auto) 0.2, Baso # (Auto) 0.0 I & O for Last 24 hours: Intake & Output 03/15/19 03/16/19 03/17/19 03/18/19 11:59 11:59 11:59 11:59 Intake Total 2863 / 2863 3975 / 3975 3090 / 3090 Output Total 930 / 930 245 / 245 250 / 250 Balance 1933 / 1933 3730 / 3730 2840 / 2840 Weight 200 lb 2 oz 206 lb 2 oz 202 lb 9 oz - *Routine Abdominal Exam Present: soft, normoactive bowel sounds. Absent: tenderness Comments: Slightly distended. Bowel sounds. FLAKITA with serous drainage. Progress Note: A&P Assessment and Plan for All Diagnoses:: Advance to full liquids. Continue IV antibiotics. Recheck CBC tomorrow. Decrease IVF.
--- NOTE | 2019-03-19 08:07 | Progress Note ---
Subjective Narrative: Patient states that his appetite has improved. He is tolerating full liquids better without nausea. He has been passing some gas. He states that yesterday he had some bowel movements. Exam Vital signs and Labs for Last 24 Hours: Temp Pulse Resp BP Pulse Ox 98.8 F 59 L 16 115/57 L 100 03/19/19 08:00 03/19/19 08:00 03/19/19 08:00 03/19/19 08:00 03/19/19 08:00 I & O for Last 24 hours: Intake & Output 03/16/19 03/17/19 03/18/19 03/19/19 11:59 11:59 11:59 11:59 Intake Total 2863 / 2863 3975 / 3975 3570 / 3570 1240 / 1240 Output Total 930 / 930 245 / 245 505 / 505 565 / 565 Balance 1933 / 1933 3730 / 3730 3065 / 3065 675 / 675 Weight 200 lb 2 oz 206 lb 2 oz 202 lb 9 oz 204 lb 1 oz - *Routine Abdominal Exam Comments: His abdomen is somewhat distended. Trocar sites are clean. FLAKITA drain with serous drainage. Progress Note: A&P Assessment and Plan for All Diagnoses:: Check blood work today. He has evidence of slowly resolving ileus. Limit to full liquids due to abdominal distention. Plan to remove FLAKITA drain. Possible discharge home in 24 to 48 hours. Continue IV antibiotics.
[2019-03-19 08:13] LABS: Basophils % 0.5 % (0.1-2.0); Eosinophils # 0.4 K/mm3 (0.0-0.4); Eosinophils % 6.1 % (0.1-12.0); Hematocrit 37.2 % (42.0-52.0); Hemoglobin 11.8 g/dL (14.1-18.0); Lymphocytes # 1.6 K/mm3 (0.7-4.5); Lymphocytes % 25.7 % (10-50); Mean Corpuscular HGB Conc 31.9 g/dL (31.8-35.4); Mean Corpuscular Volume 82.4 fl (80-94); Mean Platelet Volume 8.1 fl (7.4-10.4); Monocytes # 0.4 K/mm3 (0.1-1.0); Monocytes % 5.9 % (1.7-9.3); Neutrophils # 3.8 K/mm3 (1.8-7.8); Neutrophils % 61.8 % (37.0-80.0); Platelet Count 228 K/mm3 (142-424); Red Blood Count 4.51 M/mm3 (4.60-6.20); Red Cell Distribution Width 12.6 % (11.5-17.5); White Blood Count 6.1 K/mm3 (4.8-10.8)
[2019-03-19 08:22] LABS: Anion Gap 9.8 mEq/L (5-15); Calcium 8.6 mg/dL (8.5-10.1)
--- NOTE | 2019-03-19 10:26 | Progress Note ---
Internal Medicine - PN: Subj *Date: 03/19/19 *Time: 10:25 Exam Vital signs and Labs for Last 24 Hours: Temp Pulse Resp BP Pulse Ox 98.8 F 59 L 16 115/57 L 98 03/19/19 08:00 03/19/19 08:00 03/19/19 08:00 03/19/19 08:00 03/19/19 08:45 Laboratory Results - last 24 hr 03/19/19 08:04: WBC 6.1 D, RBC 4.51 L, Hgb 11.8 L, Hct 37.2 L, MCV 82.4, MCH 26.3 L, MCHC 31.9, RDW 12.6, Plt Count 228, MPV 8.1, Neut % (Auto) 61.8, Lymph % (Auto) 25.7, [place] % (Auto) 5.9, Eos % (Auto) 6.1, Baso % (Auto) 0.5, Neut # (Auto) 3.8, Lymph # (Auto) 1.6, [place] # (Auto) 0.4, Eos # (Auto) 0.4, Baso # (Auto) 0.0 03/19/19 08:04: Sodium 142, Potassium 3.8, Chloride 104, Carbon Dioxide 32, Anion Gap 9.8, BUN 6 L, Creatinine 0.95, Estimated Creat Clear 158, Estimated GFR 98, Est GFR ( Amer) 119, Glucose 102, Calcium 8.6 03/19/19 08:04: Magnesium 2.0 I & O for Last 24 hours: Intake & Output 03/16/19 03/17/19 03/18/19 03/19/19 23:59 23:59 23:59 23:59 Intake Total 1563 / 1563 5244 / 5244 2581 / 2581 360 / 360 Output Total 1085 / 1085 340 / 340 720 / 720 100 / 100 Balance 478 / 478 4904 / 4904 1861 / 1861 260 / 260 Weight 90.775 kg 93.497 kg 91.881 kg 92.561 kg The patient's infection will respond to the chosen ABx?: Yes Is the patient receiving the right drug, dose, and route?: Yes Could a more targeted ABx be ordered?: No (NO CULTURES, PATIENT AFEBRILE AND WBC WNL)
--- NOTE | 2019-03-20 08:08 | Progress Note ---
Subjective Patient reports: feels better Exam Vital signs and Labs for Last 24 Hours: Temp Pulse Resp BP Pulse Ox 98.1 F 63 16 128/66 100 03/20/19 07:42 03/20/19 07:42 03/20/19 07:42 03/20/19 07:42 03/20/19 07:42 Laboratory Results - last 24 hr 03/19/19 08:04: WBC 6.1 D, RBC 4.51 L, Hgb 11.8 L, Hct 37.2 L, MCV 82.4, MCH 26.3 L, MCHC 31.9, RDW 12.6, Plt Count 228, MPV 8.1, Neut % (Auto) 61.8, Lymph % (Auto) 25.7, [place] % (Auto) 5.9, Eos % (Auto) 6.1, Baso % (Auto) 0.5, Neut # (Auto) 3.8, Lymph # (Auto) 1.6, [place] # (Auto) 0.4, Eos # (Auto) 0.4, Baso # (Auto) 0.0 03/19/19 08:04: Sodium 142, Potassium 3.8, Chloride 104, Carbon Dioxide 32, Anion Gap 9.8, BUN 6 L, Creatinine 0.95, Estimated Creat Clear 158, Estimated GFR 98, Est GFR ( Amer) 119, Glucose 102, Calcium 8.6 03/19/19 08:04: Magnesium 2.0 I & O for Last 24 hours: Intake & Output 03/17/19 03/18/19 03/19/19 03/20/19 11:59 11:59 11:59 11:59 Intake Total 3975 / 3975 3570 / 3570 1240 / 1240 4653 / 4653 Output Total 245 / 245 505 / 505 565 / 565 Balance 3730 / 3730 3065 / 3065 675 / 675 4653 / 4653 Weight 206 lb 2 oz 202 lb 9 oz 204 lb 1 oz 203 lb - *Routine Abdominal Exam Present: soft Progress Note: A&P Assessment and Plan for All Diagnoses:: Discharge.
--- NOTE | 2019-03-20 08:19 | Discharge Summary ---
General - General Admission date:: 03/15/19 Discharge date: 03/20/19 HPI HPI: Patient is a 23-year-old otherwise healthy white male who states that on 03/13/2019 he had eaten some salad and developed a minor "stomachache". On 03/14/19 approximately 11 AM however he had developed recurrent acute pain in the lower abdomen. It persisted throughout the day and then on 03/15/19 became much more severe. He presented to the emergency department where he was seen and evaluated. He was found to have a mild leukocytosis and he had CT scan performed which by virtual radiology report reveals findings consistent with possible perforated appendicitis. He was having appreciable fevers in the emergency department. Surgical consultation was obtained. Hospital Course Hospital Course: Patient was taken to the operating room from the emergency department at which time he underwent laparoscopic appendectomy. He was given preoperative Zosyn followed by Unasyn. In the operating room he was found to have evidence of established peritonitis with peritoneal irritation secondary to perforated appendicitis with feculent peritonitis. There was edema and induration of the small bowel loops secondary to establish peritonitis. Appendectomy was able to be performed successfully laparoscopically. Thorough abdominal washout was performed laparoscopically. He did have a FLAKITA drain placed along the right paracolic gutter and into the pelvis. Please see operative dictation for complete details. Postoperatively he was admitted for inpatient management. He was continued on intravenous Zosyn. His white blood cell count increased somewhat to 15,000. He was limited to a clear liquid diet due to findings of persistent ileus secondary to abdominal distention and bloating. FLAKITA drain drained appreciable amount of serous drainage. It was never feculent or purulent. He slowly convalesced. Ultimately he had slow resolution of the ileus and was advanced to a full liquid diet. On postoperative day #4 his FLAKITA drain was removed. Repeat blood work revealed normal white blood cell count and normal electrolytes. He was tolerating full liquid diet. On postop day #5 arrangements were made for discharge home. Objective Vital signs: Temp Pulse Resp BP Pulse Ox 98.1 F 63 16 128/66 100 03/20/19 07:42 03/20/19 07:42 03/20/19 07:42 03/20/19 07:42 03/20/19 07:42 - Detailed Eye Exam Eyelids: Left normal inspection Results Labs on day of discharge: Labs from last 24 hours 03/19/19 03/19/19 03/19/19 08:04 08:04 08:04 WBC 6.1 D RBC 4.51 L Hgb 11.8 L Hct 37.2 L MCV 82.4 MCH 26.3 L MCHC 31.9 RDW 12.6 Plt Count 228 MPV 8.1 Neut % (Auto) 61.8 Lymph % (Auto) 25.7 [place] % (Auto) 5.9 Eos % (Auto) 6.1 Baso % (Auto) 0.5 Neut # (Auto) 3.8 Lymph # (Auto) 1.6 [place] # (Auto) 0.4 Eos # (Auto) 0.4 Baso # (Auto) 0.0 Sodium 142 Potassium 3.8 Chloride 104 Carbon Dioxide 32 Anion Gap 9.8 BUN 6 L Creatinine 0.95 Estimated Creat Clear 158 Estimated GFR 98 Est GFR ( Amer) 119 Glucose 102 Calcium 8.6 Magnesium 2.0 Discharge Plan - Patient Discharge Instructions ACTIVITY: No heavy lifting DIET: advance to your usual diet Patient Instructions: DI for Appendicitis -- Adult, DI for an Appendectomy, DI for Acute Abdomen, DI for Surgical Site Infection, Surgical Site Infection - Follow up Plan Follow up with: Alfonso Rutherford MD [Staff Physician] - 04/04/19 ProviderCorie MD [Primary Care Provider] - Disposition: Home, Self-Halfway Medications: Home Medications Medication Instructions Recorded Confirmed Type No Known Home Medications 12/11/18 03/15/19 History Amoxicillin/Potassium Clav 1 tab PO Q12H 5 Days #10 tab 03/20/19 Rx [Augmentin 875-125 Tablet] Ketorolac Tromethamine [Toradol 10 mg PO Q6H 5 Days #20 tab 03/20/19 Rx 10mg tablet] Prescriptions/Medication Reconciliation: New Amoxicillin/Potassium Clav [Augmentin 875-125 Tablet] 1 tab PO Q12H 5 Days #10 tab Ketorolac Tromethamine [Toradol 10mg tablet] 10 mg PO Q6H 5 Days #20 tab No Action No Known Home Medications
== END 2019-03-20 10:37 | disposition home or self-care (01) | DRG 339 ==
LOC: ER 13:43 → 2ND 18:45 → ER 18:45 → SDC 19:50 → OBSVTOIN 19:53 → 2ND 21:05
PROVIDERS: ADMIT Surgery; ATTEND Surgery
CPT/HCPCS: 36415; 74177; 80048; 80053; 81001; 83690; 83735; 85007; 85025; 93005; 96365; 96367; 96375; 96376; 99285; G0378; J2405; J2543; Q9967

== ENCOUNTER → 2019-04-14 09:27 | Outpatient (CLI) | payer BC, SELFPAY ==
--- NOTE | 2019-04-14 09:29 | CT_ITS ---
CT abdomen pelvis w con CLINICAL INDICATION: Follow-up perforated appendix ITS.REASON: post appendectomy ORDERING PHYSICIAN: Alfonso Rutherford MD PATIENT AGE: 23 years COMPARISON: 03/15/2019 TECHNIQUE: Contrast Used:75ml Optiray 350 Oral Contrast: 450ml Redicat Axial images obtained with sagittal and coronal reformats. All CT scans at the facility use one or more dose reduction, viz: automated exposure control, ma/kV adjustment per patient size (including targeted exams where dose is matched to indication, i.e. head), or iterative reconstruction technique. FINDINGS: Lung bases are clear. The liver, gallbladder, adrenal glands, pancreas, and kidneys have an unremarkable appearance. There is mild splenomegaly at 15 cm. Oral and IV contrast was given. Contrast has not yet traversed into the terminal ileum. There are multiple unopacified small bowel loops present in the pelvis and right lower quadrant which could obscure or mimic pathology. No definite abscess. Postsurgical changes from the prior appendectomy with clips in the right lower quadrant and postsurgical changes of the abdominal wall. There is mild thickening of the umbilicus. No free fluid is evident. IMPRESSION: Status post appendectomy. There are fluid-filled loops of small bowel in the pelvis and right lower quadrant. No definite abscess. Consider follow-up exam with better oral contrast opacification if clinical findings warrant.
== END ==
PROVIDERS: Visit Provider Surgery
DX: R10.9 Unspecified abdominal pain (principal); Z90.49 Acquired absence of other specified parts of digestive tract
CPT/HCPCS: 74177; Q9967

== ENCOUNTER → 2019-06-06 14:06 | Outpatient (CLI) | payer BC, SELFPAY ==
--- NOTE | 2019-06-06 14:09 | XR_ITS ---
PROCEDURE: XR HAND LT MIN 3V CLINICAL INDICATION: Hand FX COMPARISON: 05/12/2019. FINDINGS: There has been interval moderate callus formation at the midshaft 4th metacarpal fracture. Lucent fracture line is still present. There is no abnormal angulation. The remainder of the hand is unremarkable. IMPRESSION: Evidence of callus formation and some interval healing involving the 4th metacarpal fracture. Dictated by: Monty Mares 06/06/2019 14:28 Electronically signed by Monty Mares in [place] 06/06/2019 14:28
== END ==
PROVIDERS: Visit Provider Orthopaedic Surgery
DX: S62.355A Nondisplaced fracture of shaft of fourth metacarpal bone, left hand, initial encounter for closed fracture (principal)
CPT/HCPCS: 73130

== ENCOUNTER → 2021-09-15 17:18 | Outpatient (CLI) | payer BC, SELFPAY | PROVIDERS: Visit Provider Nurse Practitioner | DX: Z20.822 Contact with and (suspected) exposure to COVID-19 (principal) | CPT/HCPCS: C9803; U0003; U0005 ==

== ENCOUNTER → 2022-01-24 14:26 | Outpatient (CLI) | payer BC, SELFPAY | PROVIDERS: Visit Provider Nurse Practitioner Obstetrics & Gynecology | DX: Z31.41 Encounter for fertility testing (principal) ==

== ENCOUNTER 2023-03-28 12:55 | Emergency (ER) | payer BC, SELFPAY ==
[2023-03-28 13:40] VITALS: BP 127/73; PULSE 63; RESP 20; TEMP 36.8; O2SAT 100; BMI 28.3
[2023-03-28 14:07] VITALS: BP 127/73; PULSE 63; RESP 20; TEMP 36.8; O2SAT 100
== END 2023-03-28 14:09 | disposition home or self-care (01) ==
LOC: UTC 12:58
PROVIDERS: Emergency Provider Nurse Practitioner Family
DX: Z20.3 Contact with and (suspected) exposure to rabies (principal); Z29.14 Encounter for prophylactic rabies immune globulin; Z23 Encounter for immunization
CPT/HCPCS: 90471; 90675; 96372; 99212; G0463

== ENCOUNTER 2023-03-31 11:36 | Emergency (ER) | payer BC, SELFPAY ==
[2023-03-31 11:37] VITALS: BP 123/81; PULSE 63; RESP 18; TEMP 36.7; O2SAT 100; BMI 28.3
--- NOTE | 2023-03-31 11:58 | EXP.UTC ---
Discharge Plan Disposition Patient Disposition: Home, Self-Care Condition: Good Prescriptions Prescriptions: No Action ibuprofen 600 MG tablet 600 mg PO Q6HP PRN (Reason: Mild Pain) Qty: 30 0RF Referrals Follow up/Referrals: Provider,Referral, MD [Primary Care Provider] - See instructions Activity Restrictions/Add. Instructions Additional Instructions/Restrictions: Follow up as directed for your next rabies shot. GO TO THE ER FOR ANY WORSENING SYMPTOMS OR CONCERNS Clinical Impressions Clinical Impression: Rabies exposure Instructions Patient Instructions: Rabies Vaccine, DI for Rabies Vaccine, Rabies Vaccine Discharge ED Provider: Jeovany Romero [facility] [place] HPI General Stated complaint: [id number] needs 2nd rabies shot Time Seen by Provider: 03/31/23 11:58 History of Present Illness Provider Complaint: He had a close exposure to a bat in his home 4 days ago. He was started on rabies shots 3 days ago. He is here for his second shot. Related Data Previous Rx's Medication Instructions Recorded ibuprofen 600 mg tablet 600 mg PO Q6HP PRN Mild Pain #30 05/12/19 tabs Allergies Allergy/AdvReac Type Severity Reaction Status Date / Time No Known Allergies Allergy Verified 06/06/19 14:40 [facility] Disclaimer: The information contained in this section may have been updated after the patient was seen, as this information can be updated by other users. Social History Smoking Status: Unknown if ever smoked second hand exposure: No alcohol intake: never substance use type: denies use current occupational status: employed Travel in the last 8 weeks: None household members: significant other housing: house current occupation: [employer] Obtained: Yes All systems reviewed & no additional complaints except as documented Constitutional Constitutional: Denies chills and Denies fever(s) Eyes Eyes: Denies eye discharge ENT Ears, Nose, Mouth, and Throat: Denies dizziness, Denies otalgia and Denies sore throat Cardiovascular Cardiovascular: Denies chest pain Respiratory Respiratory: Denies shortness of breath, Denies chest congestion, Denies cough, Denies stridor and Denies wheezing Gastrointestinal Gastrointestingal: Denies nausea or vomiting Musculoskeletal Musculoskeletal: Reports system reviewed and no additional complaints, except as documented and Denies arthralgias Integumentary/Breasts Skin/Breast: Denies rash Neurologic Neurologic: Denies dizziness and Denies paresthesias Allergic/Immunologic Allergic/Immunologic: Denies wheezing Physical Exam General General appearance: alert and in no apparent distress Head Head exam: atraumatic, normocephalic and normal inspection Eye Eye exam: Present normal appearance, PERRL and EOMI ENT ENT exam: Present normal exam, normal oropharynx, mucous membranes moist, TM's normal bilaterally and normal external ear exam Neck Neck exam: Present normal inspection, full ROM and trachea midline; Absent meningismus or lymphadenopathy Chest Chest inspection: Present normal inspection and symmetric chest wall rise; Absent tenderness Respiratory Respiratory exam: Present normal lung sounds bilaterally; Absent respiratory distress Cardiovascular Cardiovascular exam: Present regular rate and normal rhythm; Absent JVD Abdominal Exam Abdominal exam: Present soft and normal bowel sounds; Absent distention, tenderness or guarding Extremities Exam Extremities exam: Present normal inspection, full ROM and normal capillary refill; Absent calf tenderness Back Exam Back exam: Present normal inspection; Absent tenderness Neurological Exam Neurological exam: Present alert and oriented X3 Psychiatric Psychiatric exam: Present normal affect and normal mood Skin Skin exam: Present warm, dry, intact and normal color Lymphatic Lymphatic Findings: no adenopathy Medical Decision Making Medical Records Medical
[2023-03-31 12:35] VITALS: BP 123/81; PULSE 63; RESP 18; TEMP 36.7; O2SAT 100
== END 2023-03-31 12:36 | disposition home or self-care (01) ==
PROVIDERS: Emergency Provider Nurse Practitioner Family
DX: Z20.3 Contact with and (suspected) exposure to rabies (principal); Z29.14 Encounter for prophylactic rabies immune globulin
CPT/HCPCS: 90471; 90675; 96372; 99212; G0463

== ENCOUNTER 2023-04-04 13:40 | Outpatient (CLI) | payer BC, SELFPAY ==
[2023-04-04 13:50] VITALS: BP 114/67; PULSE 65; RESP 18; TEMP 36.7; O2SAT 99
== END 2023-04-04 14:09 | disposition home or self-care (01) ==
PROVIDERS: Visit Provider Nurse Practitioner Family
DX: Z20.3 Contact with and (suspected) exposure to rabies (principal); Z23 Encounter for immunization
CPT/HCPCS: 90675

== ENCOUNTER 2023-04-11 13:56 | Emergency (ER) | payer BC, SELFPAY ==
[2023-04-11 14:09] VITALS: BP 124/69; PULSE 69; RESP 16; TEMP 36.6; O2SAT 98; BMI 28.3
[2023-04-11 14:22] VITALS: BP 124/69; PULSE 69; RESP 16; TEMP 36.6; O2SAT 98
== END 2023-04-11 14:23 | disposition home or self-care (01) ==
LOC: UTC 14:00
PROVIDERS: Emergency Provider Nurse Practitioner Family
DX: Z29.14 Encounter for prophylactic rabies immune globulin (principal); Z20.3 Contact with and (suspected) exposure to rabies
CPT/HCPCS: 90471; 90675; 96372; 99212; G0463